=== PATIENT | male | born 1990 | race Caucasian/White ===

== ENCOUNTER 2021-06-11 19:13 | Emergency (ER) | payer OTHER ==
[~2021-06-11] VITALS: Ht 185.4 cm; Wt 83.5 kg
[~2021-06-11 19:13] MED LIST: KEFLEX500 MG PO; NOHOMEMEDICATIONS
[2021-06-11] MEDS ORDERED: PHENERGAN 25 MG25 M1 PO (21:04)
[2021-06-11 21:15] VITALS: BP 133/79
== END 2021-06-11 21:16 | disposition home or self-care (01) ==
LOC: M.ERS 19:13
DX: B34.9 Viral infection, unspecified (principal); Z20.822 Contact with and (suspected) exposure to COVID-19